=== PATIENT | male | born 1980 | race Caucasian/White ===

== ENCOUNTER 2017-04-09 18:49 | Emergency (ER) | payer OTHER ==
[2017-04-09] MEDS ORDERED: IBUPROFEN 600 MG TAB PO ONE (19:01)
[2017-04-09 19:06] VITALS: RESP 16; TEMP 98.1; O2SAT 95
[2017-04-09 19:51] VITALS: BP 135/72; PULSE 72
--- NOTE | 2017-04-09 19:52 | EDPHY ---
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 He landed on a flexed elbow. He complains of pain. he denies any focal numbness or tingling. He does complain of his arm feeling cold. He denies any other pain or injury. REVIEW OF SYSTEMS: As in HPI, and all other systems reviewed and are negative Smoking Status: Never smoked Physical Exam: General Appearance: Alert and no distress. Eyes: Pupils equal and round no injection. Musculoskeletal: Neck is supple and nontender. Extremities: Right elbow positive olecranon swelling and tenderness, decreased range of motion secondary to pain, patient is able to rotate wrist fully, radial pulses 2+ and equal to the left, distal cap refills less than 2 sec, distal sensation is intact, radial, ulnar and median nerves are intact both sensory and motor. There is no shoulder tenderness. There is no wrist tenderness or deformity. Skin: No rashes or lesions except as described above. Constitutional: Initial Vital Signs Temperature (C) 36.7 C 04/09/17 19:03 Heart Rate 74 04/09/17 19:03 Respiratory Rate 16 04/09/17 19:03 Blood Pressure 155/94 H 04/09/17 19:03 O2 Sat (%) 95 04/09/17 19:03 O2 Delivery Mode Room Air Allergies/Adverse Reactions: No Known Allergies Allergy (Unverified 04/09/17 19:03) Home Medications: Medication Instructions Recorded Hydrocodone/APAP 5/325 [Flintstone 1 - 2 tab PO Q6H PRN #20 tab 04/09/17 5/325 (*)] MDM/Departure - MDM Imaging Results: Imaging Impressions Elbow X-Ray 04/09/17 19:01 Impression: Mildly displaced olecranon process fracture. Imaging: I viewed and interpreted images myself Medications Given: Discontinued Medications Ibuprofen (Motrin) 600 mg PO EDNOW ONE Stop: 04/09/17 19:02 Last Admin: 04/09/17 19:10 Dose: 600 mg ED Course/Re-evaluation: 36-year-old man presents with pain and swelling of right elbow after fall onto ice. X-ray show fracture of the proximal ulnar with minimal displacement. I discussed the case with Dr. Mcclellan, on-call for Orthopedics who recommends splinting and follow-up in his office on Tuesday. Patient was placed in a long- arm splint and sling. I checked the splint placement. Patient was given ibuprofen for pain and discharged home with ibuprofen and Flintstone. - Depart Disposition: Home, Routine, Self-Care Clinical Impression: Fracture of proximal end of right ulna Qualifiers: Encounter type: initial encounter Fracture type: closed Fracture morphology: unspecified fracture morphology Qualified Code(s): S52.001A - Unspecified fracture of upper end of right ulna, initial encounter for closed fracture Condition: Good Instructions: Hydrocodone/Acetaminophen (By mouth), Elbow Fracture (ED) Additional Instructions: You were seen by Dr. Luiza De La Torre today. Keep the splint in place. Please follow up with Dr. Mcclellan, the orthopedic surgeon, on Tuesday. Call Tuesday morning to get an appointment to be seen later that day. Take ibuprofen as needed for pain with [place]stone as needed for severe pain. Ice the fracture through the splint for pain relief. Return for any worsening or new concerns. Prescriptions: Hydrocodone/APAP 5/325 [Flintstone 5/325 (*)] 1 - 2 tab PO Q6H PRN #20 tab PRN Reason: Pain, Moderate Referrals: Nena Walls MD [Primary Care Provider] - As per Instructions Jessica Mcclellan MD [Medical Doctor] - As per Instructions
[2017-04-09] MEDS ORDERED: HYDROCOD/APAP 5/325 PREPACK#6 BTL TAKEHOME ONE (20:09)
== END 2017-04-09 20:21 | disposition home or self-care (01) ==
LOC: CED 18:49
DX: S52.001A Unspecified fracture of upper end of right ulna, initial encounter for closed fracture (principal); V00.211A Fall from ice-skates, initial encounter; Y99.8 Other external cause status; Y93.21 Activity, ice skating
CPT/HCPCS: 73080-PO